=== PATIENT | female | born 1995 ===

== ENCOUNTER 2016-10-16 18:37 | Emergency (ER) | payer SELFPAY ==
--- NOTE | ~2016-10-16 | ER ---
PATIENT'S NAME: SARAH HO [facility] AGE: 21 Y [address] ROOM: [place] [address] LOCATION: [facility] ADMIT DATE: 10/16/2016 ER/Outpatient Report DISCHARGE DATE: 10/16/2016 FAMILY PHYSICIAN: PHYSICIAN, NO ATTENDING PHYSICIAN: Demetrius Graham Time of Arrival: 1847 hours. Time of Evaluation: 1855 hours. CHIEF COMPLAINT: Abdominal pain. HISTORY OF PRESENT ILLNESS: The patient states that she has had lower abdominal pain and cramping for the last 3 days. She has not had any nausea or vomiting. No diarrhea. She had a normal bowel movement yesterday. She has not felt feverish or chills. Does not have any pain or discomfort with urination. She reports she does have a history of ovarian cyst and that she is a week late on her period. States the pain is on both sides, equal, no radiation of the pain. Activity does not seem to set it off. She says it just comes and goes. Not related to food. ALLERGIES: NO KNOWN ALLERGIES. MEDICATIONS: No current medications. PAST MEDICAL HISTORY: Ovarian cyst. PAST SURGERIES: Tonsillectomy. NONPROFIT DIRECTOR HISTORY: Last period was on 09/12/2016. SOCIAL HISTORY: She does have a Mirena in for control. She does smoke one-fourth to half a pack per day. Denies use of drugs or alcohol. REVIEW OF SYSTEMS: All negative other than those mentioned in the HPI. PHYSICAL EXAMINATION: VITAL SIGNS: She weighs 80.4 kg, blood pressure is 126/73, pulse of 82, PATIENT'S NAME: SARAH HO [facility] AGE: 21 Y [address] ROOM: [place], [place] [address] LOCATION: [facility] ADMIT DATE: 10/16/2016 ER/Outpatient Report DISCHARGE DATE: 10/16/2016 FAMILY PHYSICIAN: PHYSICIAN, NO ATTENDING PHYSICIAN: Demetrius Graham respirations 18, temperature of 98.2 tympanic, O2 saturation is 96% on room air. GENERAL: She is awake, alert, and oriented x4. SKIN: [place], warm, and dry. RESPIRATIONS: Even and nonlabored. Lung sounds are clear throughout. HEART: Regular rate and rhythm. ABDOMEN: Soft and nondistended. Bowel sounds are present. She is not tender with deep palpation of the abdomen. LABORATORY DATA AND X-RAYS: Lab work was drawn. CBC shows a white count of 12.4, hemoglobin is 13.9, hematocrit 41.8. Chem panel, sodium is 141, potassium is 3.7, chloride 108. Clean-catch UA was obtained, did show leukocytes but rare bacteria and only 5- 10 white cells. Urine test was negative. EMERGENCY DEPARTMENT COURSE: With rest, she says the pain just comes and goes. It has not gotten worse while she has been here in the ER. She has not been nauseated, has not vomited. IMPRESSION: 1. Abdominal pain. 2. History of ovarian cyst. PLAN: Home, rest, fluids. Tylenol or ibuprofen for fevers or discomfort and follow up with her primary provider if symptoms persist or worsen. She verbalizes understanding. MAXIMILIANO COLEMAN APRN FOR [employer] [facility]/shree /[id number] d: 10/16/[id number] t: 10/20/16 0633, OUTPATIENT REPORT
[~2016-10-16 18:37] MED LIST: AMOXICILLIN500 M1; AMOXICILLIN875 MG PO; FEOSOL325 MG PO; MOTRIN800 MG PO; PRENATAL 1+1)(P1 TAB; PRENATAL 1+1)(P1 TAB PO; SURFAK240 MG PO
[2016-10-16 19:06] LABS: BILIRUBIN URINE NEGATIVE (NEGATIVE); BLOOD URINE NEGATIVE /UL (NEGATIVE); COLOR URINE YELLOW (YELLOW); GLUCOSE URINE NEGATIVE (NEGATIVE); KETONE URINE NEGATIVE (NEGATIVE); LEUKOCYTES URINE 100 /UL (NEGATIVE); NITRITE URINE NEGATIVE (NEGATIVE); PROTEIN URINE NEGATIVE (NEGATIVE); TURBIDITY URINE 1+ (CLEAR); UROBILINOGEN URINE NORMAL (NORMAL)
[2016-10-16 19:22] LABS: AMORPHOUS URINE 1+ (NEGATIVE); BACTERIA URINE RARE (NEGATIVE); RBC URINE NEGATIVE #/HPF (NEGATIVE)
[2016-10-16 19:44] LABS: BASOPHIL # 0.1 K/uL (0.0-0.2); BASOPHIL % 0.5 %; EOSINOPHIL # 0.2 K/uL (0.0-0.5); EOSINOPHIL % 1.4 %; HEMATOCRIT 41.8 % (33.0-46.0); HEMOGLOBIN 13.9 g/dL (11.0-15.0); IMMATURE GRANULOCYTE % 0.2 %; LYMPHOCYTE # 4.3 K/uL (0.8-4.0); LYMPHOCYTE % 34.5 %; MCH 29.6 pg (27.0-34.0); MCHC 33.3 gm/dL (32.0-36.5); MCV 89.1 fl (83.0-98.0); MONOCYTE # 0.6 K/uL (0.0-1.0); MONOCYTE % 5.1 %; NEUTROPHIL # (ANC) 7.2 K/uL (1.8-7.8); NEUTROPHIL % 58.3 %; NRBC % 0 /100WBC (0-0.00); PLATELET COUNT 303 K/uL (150-450); RBC 4.69 M/uL (3.50-5.00); RDW-CV 12.7 % (11.9-14.6); WBC 12.4 K/uL (4.0-11.0)
[2016-10-16 20:00] LABS: ALBUMIN 4.1 gm/dL (3.5-5.0); ALK PHOS 87 IU/L (33-138); ALT 13 IU/L (12-78); ANION GAP 10.7 (10.0-19.0); AST 11 IU/L (10-40); BLOOD UREA NITROGEN 14 mg/dL (6-24); CHLORIDE 108 mMol/L (96-110); CO2 26 mMol/L (22-32); CREATININE 0.7 mg/dL (0.5-1.1); POTASSIUM 3.7 mMol/L (3.7-5.1); SODIUM 141 mMol/L (135-145); TOTAL BILIRUBIN 0.3 mg/dL (0.0-1.5); TOTAL PROTEIN 7.6 g/dL (6.0-8.4)
== END 2016-10-16 20:26 | disposition disaster alternative care site (69) ==
LOC: GMED 18:37
PROVIDERS: Emergency Medicine
DX: R10.30 Lower abdominal pain, unspecified (principal); N83.209 Unspecified ovarian cyst, unspecified side; F17.210 Nicotine dependence, cigarettes, uncomplicated; Z90.89 Acquired absence of other organs